=== PATIENT | female | born 1965 | race Caucasian/White ===

== ENCOUNTER 2020-05-05 16:36 | Emergency (ER) | payer OTHER ==
[~2020-05-05] VITALS: Ht 162.6 cm; Wt 133.0 kg
--- NOTE | 2020-05-05 17:05 | PHYS DOC ---
General Adult EDM: Chief Complaint: WRIST PAIN HPI: HPI: Patient is a 54-year-old male coming in for left hand and forearm pain. Patient states she slipped getting out of tablet prior self-limited back pain. Went to her primary care today who sent her here for x-rays, they are x-ray tech out 16 today. States she is tingling in all of her fingers but sensation is intact. Complaining of pain along the entire forearm and second and third metacarpals. Patient is right-handed. Otherwise been well. Took 1 Percocet 10 about 5 hours prior to arrival Review of Systems: Review of Systems: All other systems within normal limits except for as noted in the HPI Current Medications: Current Meds: Current Medications Medications (Trade) Dose Ordered Sig/Carina Start Time Stop Time Status Last Admin Dose Admin Morphine Sulfate (Morphine Ir) 15 mg 1X STAT 05/05/20 16:55 05/05/20 16:56 UNV Physical Exam: PE: Constitutional: Well developed, well nourished, no acute distress, non-toxic appearance. [] HENT: Normocephalic, atraumatic, bilateral external ears normal, nose normal. [] Eyes: PERRLA, conjunctiva normal, no discharge. [] Neck: No rigidity, supple, no stridor. [] Cardiovascular: Regular rate and rhythm, brisk cap refill [] Lungs & Thorax: Non labored symmetric respirations, no tachypnea or respiratory distress [] Abdomen: Soft, nondistended. Skin: Warm, dry, no erythema, no rash. [] Back: Unremarkable Extremities: No deformities, range of motion grossly intact, no lower extremity edema. Left forearm tenderness and swelling over distal forearm, no deformities. Left hand: Edema over dorsum at second and third metatarsals. Range of motion intact for AIN, PIN, radial, ulnar, median nerves. Positive snuffbox tenderness [] Neurologic: Alert and oriented X 3, no focal deficits noted. [] Psychologic: Affect normal, judgement normal, mood normal. [] EKG: EKG: [] Radiology/Procedures: Radiology/Procedures: EXAM: Left forearm, 2 views; left hand, 3 views. HISTORY: Fall. COMPARISON: None. FINDINGS: 2 views of the left forearm and 3 views of left hand are obtained. There is no fracture, dislocation or subluxation. There is no convincing elbow effusion. IMPRESSION: No acute osseous finding. [] Heart Score: Risk Factors: Risk Factors: DM, Current or recent (<one month) smoker, HTN, HLP, family history of CAD, obesity. Risk Scores: Score 0 - 3: 2.5% MACE over next 6 weeks - Discharge Home Score 4 - 6: 20.3% MACE over next 6 weeks - Admit for Clinical Observation Score 7 - 10: 72.7% MACE over next 6 weeks - Early Invasive Strategies Course & Med Decision Making: Course & Med Decision Making Pertinent Labs and Imaging studies reviewed. (See chart for details) [] Dragon Disclaimer: Dragon Disclaimer: This electronic medical record was generated, in whole or in part, using a voice recognition dictation system. Departure Departure: Impression: Primary Impression: Fall Additional Impression: Left wrist sprain Disposition: 01 DC HOME SELF CARE/HOMELESS Condition: STABLE Referrals: TRISTEN WALLER (PCP) Patient Instructions: RICE - Routine Care for Injuries Additional Instructions: Follow-up with primary care in 7 to 10 days for reevaluation of scaphoid tender ness Scripts Morphine Sulfate (MORPHINE SULFATE) 15 Mg Tablet 1 TAB PO PRN Q8HRS PRN for SEVERE PAIN, #8 TAB Be careful as this medication may make you sleepy or drowsy. Do not drive or operate heavy machinery on this medication. Be sure to ask the pharmacist about other side effects that can exist such as constipation. Prov: WALKER PEREZ MD 05/05/20 WALKER PEREZ MD May 05, 2020 17:05
--- NOTE | 2020-05-05 17:14 | RAD ---
EXAM: Left forearm, 2 views; left hand, 3 views. HISTORY: Fall. COMPARISON: None. FINDINGS: 2 views of the left forearm and 3 views of left hand are obtained. There is no fracture, di slocation or subluxation. There is no convincing elbow effusion. IMPRESSION: No acute osseous finding. Electronically signed by: Lidia Musa MD (05/05/2020 5:11 PM) [id number]
[2020-05-05] MEDS ORDERED: MORPHINE IR 15 MG TABLET PO STA (17:20)
[2020-05-05] MEDS ORDERED: MORP15TA PO (17:24)
[2020-05-05 17:26] VITALS: BP 129/60
== END 2020-05-05 18:10 | disposition home or self-care (01) ==
LOC: ER 16:36
DX: S63.502A Unspecified sprain of left wrist, initial encounter (principal); W07.XXXA Fall from chair, initial encounter; Y93.89 Activity, other specified; Y92.89 Other specified places as the place of occurrence of the external cause; Y99.8 Other external cause status
CPT/HCPCS: 29125; 73090; 73130; 99284

== ENCOUNTER → 2020-10-05 | Outpatient (CLI) | payer OTHER ==
[~2020-10-05] MED LIST: MORP15TA PO
--- NOTE | 2020-10-05 11:13 | RAD ---
Examination: Left Lower Extremity Venous Doppler Ultrasound History: Left calf pain Comparison: None Procedure: Carlisle scale, color flow 2D and spectal waveform analysis images are obtained with and witho ut compression in the area of the common femoral vein, superficial femoral vein - femoral vein juncti on, main femoral vein (superficial femoral vein) and popliteal vein. Veins of the proximal calf are a lso imaged. Findings: There is normal duplex flow, color flow and compressibility of all visualized vein segments. No evide nce of deep venous thrombus is present. Impression: No evidence of DVT in the left lower extremity venous system. Electronically signed by: Ashish Allen MD (10/05/2020 11:11 AM) [id number]
== END ==
LOC: US 10:42
PROVIDERS: ATTEND Family Medicine
DX: M79.662 Pain in left lower leg (principal); Z98.890 Other specified postprocedural states
CPT/HCPCS: 93971

== ENCOUNTER 2021-02-08 22:51 | Emergency (ER) | payer OTHER, MEDICAID ==
[~2021-02-08] VITALS: Ht 162.6 cm; Wt 133.0 kg
[2021-02-08 22:58] VITALS: BP 146/91
[2021-02-08] MEDS ORDERED: AZIT250T6 PO (23:08)
--- NOTE | 2021-02-08 23:08 | PHYS DOC ---
Past History Past Medical History: Other Additional Past Medical Histor: degenerative disc disease Past Surgical History: Other Additional Past Surgical Histo: lap band Alcohol Use: None General Adult EDM: Chief Complaint: COUGH HPI: HPI: Patient is a [age] year old [sex] who presents with [] Review of Systems: Review of Systems: Constitutional: Denies fever or chills Eyes: Denies redness or eye pain HENT: Denies nasal congestion or sore throat Respiratory: Denies cough or shortness of breath Cardiovascular: Denies chest pain or palpitations GI: Denies abdominal pain, nausea, or vomiting : Denies dysuria or hematuria Musculoskeletal: Denies back pain or joint pain Integument: Denies rash or skin lesions Neurologic: Denies headache, focal weakness or sensory changes Complete systems were reviewed and found to be within normal limits, except as documented in this note. Allergies: Allergies: Allergies Coded Allergies Type Severity Reaction Last Updated Verified No Known Drug Allergies 05/05/20 No Physical Exam: PE: Constitutional: Well developed, well nourished, no acute distress, non-toxic appearance HENT: Normocephalic, atraumatic Eyes: PERRL, EOMI, conjunctiva normal, no discharge Neck: Normal range of motion, no tenderness, supple Lungs & Thorax: No respiratory distress, equal chest rise and fall Abdomen: Soft, no tenderness Skin: Warm, dry, no erythema, no rash Back: No tenderness, no CVA tenderness Extremities: No tenderness, ROM intact, no edema Neurologic: Alert and oriented X 3, normal motor function, normal sensory function, no focal deficits noted Psychologic: Affect normal, judgment normal EKG: EKG: [] Radiology/Procedures: Radiology/Procedures: [] Heart Score: C/O Chest Pain: N/A Course & Med Decision Making: Course & Med Decision Making Pertinent Labs and Imaging studies reviewed. (See chart for details) Patient stable for discharge with outpatient follow-up with PCP. Discussed findings and plan with patient, who acknowledges understanding and agreement. COVID-19 CRITERIA: The patient was evaluated during the global COVID-19 pandemic, and that diagnosis was suspected/considered upon their initial presentation. Their evaluation, treatment and testing was consistent with current guidelines for patients who present with complaints or symptoms that may be related to COVID-19. Judy Disclaimer: Judy Disclaimer: This electronic medical record was generated, in whole or in part, using a voice recognition dictation system. Departure Departure: Impression: Primary Impression: Viral syndrome Additional Impression: Suspected COVID-19 virus infection Disposition: 01 HOME / SELF CARE / HOMELESS Condition: STABLE Referrals: TRISTEN WALLER (PCP) Patient Instructions: Fever, Adult, [id number], Viral Syndrome Additional Instructions: Hold antibiotics for 48 hours. If symptoms worsen or for fever > 100.3 F after 48 hours then start antibiotics as prescribed. You have been tested for or diagnosed with COVID-19. It is an infection caused by a new type of coronavirus. COVID-19 will cause cold-like or mild flu symptoms in most. It can cause more severe symptoms like problems breathing in some. There is no treatment for COVID-19. The body will clear the infection over time. Self-care will help to ease discomfort. Steps to Take: Self-Care Rest as needed. Healthy habits may help you feel better. Steps include: Choose healthy foods including fruits and vegetables. Drink water throughout the day. Get plenty of sleep each night. If you smoke, try to quit. It may ease breathing. Avoid alcohol. Keep Others Healthy The virus can spread to others. Droplets are released every time you sneeze or cough. The droplets can get into the mouth, nose, or eyes of people near you and lead to infection. To lower the chances of spreading COVID-19 to others: Stay at home until your doctor has said it is safe to leave. If you tested positive this will mean staying isolated until both of the following are true: At least 7 days have passed since the start of illness. You are free of fever for at least 72 hours without the use of medicine. During this time: - Avoid public areas, events, or transportation. Do not return to work or school until your doctor has said it is safe to do so. - Call ahead if you need to go to a medical center. Let them know you may have COVID-19. It will help them guide you where to go. They may also ask you to wear a facemask when you come to the office. - If you call for emergency medical services, let them know you may have COVID- 19. While at home: - Try to avoid close contact with others. Stay about 6 feet away. - If possible, spend most of your time in a separate room from others. - Use a face mask if you will be in close contact with others such as sharing a room or vehicle. - Have someone wipe down common surfaces in the home. Use household drill rig operator helper every day on areas like doorknobs, counters, or sinks. - Cough or sneeze into a tissue. Throw the tissue away right after use. If a tissue is not available, cough or sneeze into your elbow. - Wash your hands often. Wash them after sneezing or coughing. Use soap and water and wash for at least 20 seconds. Alcohol based hand fur dry cleaner hand can be used if soap and water is not available. - Do not prepare food for others. Avoid sharing personal items like forks, spoons, or toothbrushes. - Avoid close contact with pets while you are sick. There is no evidence of the virus passing to pets. This is a safety step until more is known about this virus. Isolation can be frustrating. Social interaction can help. Keep in touch with friends and family through phone and tech options. You can still interact with others in your home, just keep a safe distance of about 6 feet. Follow-up: Your doctors office will check in with you to see if there are any changes in your health. You may be asked to keep track of symptoms to share with them. They will also let you know when you are clear to be in public again. Problems to Look Out For: Contact your doctor if your recovery is not going as you expect. Get emergency care if you have problems such as: - Trouble breathing - Nonstop chest pain or pressure - Changes in awareness, confusion, or problems waking - Lips or face have bluish color - Worsening of symptoms If you think you have an emergency, call for emergency medical services right away. As taken from [facility] Scripts Azithromycin (AZITHROMYCIN TABLET) 250 Mg Tablet 1 PKG PO UD for bronchitis, #6 TAB Take 2 tablets today and then one tablet every day thereafter for the next 4 days Prov: LEE KUMAR DO 02/08/21 LEE KUMAR DO Feb 08, 2021 23:08
[2021-02-08] MEDS ORDERED: ACETAMINOPHEN 500 MG TABLET PO ONE (23:30)
[2021-02-08] MEDS ORDERED: DEXAMETHASONE 4 MG TABLET PO ONE (23:30)
--- NOTE | 2021-02-08 23:44 | RAD ---
XR CHEST 1V History: Fever, cough, possible Covid Comparison: None. Technique: Portable AP radiograph of the chest. Findings: The lungs are adequately inflated. No focal airspace opacity, pleural effusion or pneumothorax. The c ardiomediastinal silhouette and pulmonary vasculature are within normal limits. A 1.1 cm calcified de nsity projects over the right scapula, possible osteochondral body from the shoulder. Degenerative ch anges of the acromioclavicular joints. Soft tissues are unremarkable. Impression: 1. No acute cardiopulmonary process. Electronically signed by: Scar Pickett MD (02/08/2021 11:41 PM) [facility]
== END 2021-02-08 23:25 | disposition home or self-care (01) ==
LOC: ER 22:51
DX: U07.1 COVID-19 (principal); B34.9 Viral infection, unspecified
CPT/HCPCS: 71045; 99284; C9803; J8540; U0003

== ENCOUNTER 2021-05-02 15:38 | Emergency (ER) | payer OTHER, MEDICAID ==
[~2021-05-02] VITALS: Ht 162.6 cm; Wt 133.0 kg
[~2021-05-02 15:38] MED LIST changes: +AZIT250T6 PO; +MORP-62 PO; -MORP15TA PO
[2021-05-02 16:07] VITALS: BP 146/91
[2021-05-02] MEDS ORDERED: IOHEXOL 300 MG/ML 75 ML VIAL. IV ONE (16:30)
[2021-05-02] MEDS ORDERED: LIDO:MAALOX 1:1 20 ML SINGLE DOSE. PO ONE (16:30)
[2021-05-02] MEDS ORDERED: IV NORMAL SALINE 1,000ML 1,000 ML IV ONE (16:30)
--- NOTE | 2021-05-02 16:31 | PHYS DOC ---
Past History Past Medical History: Anxiety, Asthma, Other Additional Past Medical Histor: degenerative disc disease, incontinence (MARIO LAZCANO APRN) Past Surgical History: Gastric Bypass, Other Additional Past Surgical Histo: lap band, bladder surgery (MARIO LAZCANO APRN) Smoking: Quit Greater Than 1 Year Alcohol Use: None Drug Use: None (MARIO LAZCANO APRN) General Adult EDM: Chief Complaint: SORE THROAT HPI: HPI: Patient is a 55-year-old female who presents to the emergency department today for acid reflux, sore throat and throat spasms. Patient reports that she had a gastric bypass surgery in August. She reports that she had the symptoms on April 22 and took an omeprazole and it resolved but she states she took an om eprazole today and it did not help her symptoms. Patient reports a hoarse voice, nasal drainage and a productive cough.She reports that burning sensation is located in at the base of her throat and into her throat. She denies any chest pain. Patient reports that she is not actually having any reflux produced. She states that she had a negative Covid test a couple of days ago. She denies any abdominal pain, nausea, vomiting, hematemesis, diarrhea, shortness of breath. (MARIO LAZCANO APRN) Review of Systems: Review of Systems: HENT: See HPI Respiratory: See HPI Cardiovascular: See HPI GI: See HPI (MARIO LAZCANO APRN) Allergies: Allergies: Allergies Coded Allergies Type Severity Reaction Last Updated Verified Penicillins Allergy Unknown 02/08/21 Yes bupropion Allergy Unknown 02/08/21 Yes buspirone Allergy Unknown 02/08/21 Yes erythromycin base Allergy Unknown 02/08/21 Yes meperidine Allergy Unknown 02/08/21 Yes morphine Allergy Unknown 02/08/21 Yes paroxetine Allergy Unknown 02/08/21 Yes promethazine Allergy Unknown 02/08/21 Yes (MARIO LAZCANO APRN) Physical Exam: PE: Constitutional: Well developed, well nourished, no acute distress, non-toxic appearance. [] HENT: Normocephalic, atraumatic, bilateral external ears normal, oropharynx moist, no oral exudates, nose normal. [] Eyes: PERRLA, EOMI, conjunctiva normal, no discharge. [] Neck: Normal range of motion, no tenderness, supple, no stridor. [] Cardiovascular:Heart rate regular rhythm, no murmur [] Lungs & Thorax: Bilateral breath sounds clear to auscultation [] Abdomen: Bowel sounds normal, soft, no tenderness, no masses, no pulsatile masses. [] Skin: Warm, dry, no erythema, no rash. [] Back: No tenderness, no CVA tenderness. [] Extremities: No tenderness, no cyanosis, no clubbing, ROM intact, no edema. [] Neurologic: Alert and oriented X 3, normal motor function, normal sensory function, no focal deficits noted. [] Psychologic: Affect normal, judgement normal, mood normal. [] (MARIO LAZCANO APRN) Current Patient Data: Labs: Laboratory Tests Test 05/02/21 16:34 05/02/21 17:00 05/02/21 17:15 Group A Streptococcus Rapid Negative White Blood Count 8.1 x10^3/uL Red Blood Count 4.18 x10^6/uL Hemoglobin 13.3 g/dL Hematocrit 40.6 % Mean Corpuscular Volume 97 fL Mean Corpuscular Hemoglobin 32 pg Mean Corpuscular Hemoglobin Concent 33 g/dL Red Cell Distribution Width 13.3 % Platelet Count 251 x10^3/uL Neutrophils (%) (Auto) 67 % Lymphocytes (%) (Auto) 23 % Monocytes (%) (Auto) 8 % Eosinophils (%) (Auto) 1 % Basophils (%) (Auto) 0 % Neutrophils # (Auto) 5.5 x10^3uL Lymphocytes # (Auto) 1.9 x10^3/uL Monocytes # (Auto) 0.7 x10^3/uL Eosinophils # (Auto) 0.1 x10^3/uL Basophils # (Auto) 0.0 x10^3/uL Sodium Level 139 mmol/L Potassium Level 4.0 mmol/L Chloride Level 105 mmol/L Carbon Dioxide Level 27 mmol/L Anion Gap 7 Blood Urea Nitrogen 6 mg/dL Creatinine 0.6 mg/dL Estimated GFR (Cockcroft-Gault) 103.0 BUN/Creatinine Ratio 10 Glucose Level 81 mg/dL Calcium Level 8.4 mg/dL Total Bilirubin 0.4 mg/dL Aspartate Amino Transf (AST/SGOT) 22 U/L Alanine Aminotransferase (ALT/SGPT) 31 U/L Alkaline Phosphatase 117 U/L Troponin I High Sensitivity 5 ng/L Total Protein 6.3 g/dL Albumin 3.5 g/dL Albumin/Globulin Ratio 1.3 Influenza Type A (Rapid) Negative Influenza Type B (Rapid) Negative SARS-CoV-2 Antigen (Rapid) Negative Current Medications Medications (Trade) Dose Ordered Sig/Carina Route PRN Reason Start Time Stop Time Status Last Admin Dose Admin Sodium Chloride 1,000 ml @ 1,000 mls/hr 1X ONCE IV 05/02/21 16:30 05/02/21 17:29 DC 05/02/21 16:30 Multi-Ingredient Mouthwash/Gargle (Gi Cocktail) 20 ml 1X ONCE PO 05/02/21 16:30 05/02/21 16:31 DC 05/02/21 16:30 Iohexol (Omnipaque 300 Mg/ml) 75 ml 1X ONCE IV 05/02/21 16:30 05/02/21 16:31 DC 05/02/21 17:59 Info (Do NOT chart on this entry -- for MONITORING) 1 each PRN DAILY PRN MC SEE COMMENTS 05/02/21 16:45 05/04/21 16:44 Lorazepam (Ativan Inj) 1 mg 1X ONCE IVP 05/02/21 17:30 05/02/21 17:42 DC 05/02/21 17:30 Lorazepam (Ativan Inj) 1 mg 1X ONCE IVP 05/02/21 18:15 05/02/21 18:16 DC 05/02/21 18:07 Famotidine (Pepcid Vial) 20 mg 1X ONCE IVP 05/02/21 19:45 05/02/21 19:35 DC Famotidine (Pepcid) 20 mg 1X ONCE PO 05/02/21 19:45 05/02/21 19:46 UNV Vital Signs: Vital Signs Date Time Temp Pulse Resp B/P (MAP) Pulse Ox O2 Delivery O2 Flow Rate FiO2 05/02/21 16:07 99.3 88 18 146/91 (109) 98 (MARIO LAZCANO APRN) EKG: EKG: EKG performed by ER staff at 1644 shows sinus rhythm with a rate of 76, QTc of 420, no STEMI read by Dr. Lopes at 1649. [] (MARIO LAZCANO APRN) Radiology/Procedures: Radiology/Procedures: []PROCEDURE: CT NECK CHEST ABD PELVIS W/ CT NECK CHEST ABD PELVIS W CON History: Reflux, history of gastric bypass, esophageal ulcer. Comparison: None. Technique: CT of the neck, chest, abdomen, and pelvis with intravenous contrast. Findings: There is a enlarged heterogeneous multinodular thyroid with substernal exte nsion. The bilateral parotid and submandibular glands are unremarkable. No enlarged cervical adenopathy. The vascular structures are patent. There are calcifications of bilateral carotid bulbs. The mastoid air cells and visualized paranasal sinuses are clear. No aerodigestive tract mucosal lesion identified. No abscess. Mild degenerative changes in the cervical spine. The aorta and pulmonary arteries are normal in caliber. Thickening of the distal thoracic esophagus with small to moderate sliding hiatal hernia. Heart size is normal. Mild coronary artery calcification. No pericardial effusion. The airways are clear. There is no airspace consolidation. No pleural effusion or pneumothorax. Degenerative changes of the right shoulder with calcified osteochondral body in the anterior axillary pouch measuring 9 mm diameter. No acute osseous abnormality. The liver is unremarkable. Status post cholecystectomy. Mild fatty atrophy of the pancreas. The spleen, adrenal glands and kidneys are unremarkable. The bladder is well distended. There is obscured by left hip arthroplasty. No focal lesion is identified. Unremarkable visualized portions of the uterus and adnexa. Postsurgical changes from gastric bypass with small sliding hernia as above. The excluded stomach is nondistended. The antecolic alimentary limb is nondistended. There is no evidence of small bowel obstruction. Patent anterior left midabdomen jejunojejunostomy. Normal appendix. Mild colonic stool burden. No colonic wall thickening or pericolonic inflammatory changes. No free air or free fluid. No adenopathy. Degenerative changes the lower lumbar spine. Left total hip arthroplasty. No acute osseous abnormalities. Impression: 1. Postsurgical changes from gastric bypass with small sliding hiatal hernia and thickening of the distal esophagus. Correlate for esophagitis. 2. Heterogeneous enlarged multinodular thyroid. Recommend thyroid ultrasound for further evaluation. ------ Exposure: One or more of the following individualized dose reduction techniques were utilized for this examination: 1. Automated exposure control 2. Adjustment of the mA and/or kV according to patient size 3. Use of iterative reconstruction technique. Electronically signed by: Scar Palmer MD (05/02/2021 7:07 PM) [facility] DICTATED AND SIGNED BY: SCAR PALMER MD DATE: 05/02/21 2502 CC: EMERGENCY,DEPARTMENT; MARIO LAZCANO APRN; TRISTEN WALLER ~MTH0 0 (MARIO LAZCANO APRN) Heart Score: C/O Chest Pain: No Risk Factors: Risk Factors: DM, Current or recent (<one month) smoker, HTN, HLP, family his tory of CAD, obesity. Risk Scores: Score 0 - 3: 2.5% MACE over next 6 weeks - Discharge Home Score 4 - 6: 20.3% MACE over next 6 weeks - Admit for Clinical Observation Score 7 - 10: 72.7% MACE over next 6 weeks - Early Invasive Strategies (MARIO LAZCANO APRN) Course & Med Decision Making: Course & Med Decision Making Pertinent Labs and Imaging studies reviewed. (See chart for details) [] Patient presents to the emergency department for reflux symptoms, throat spasms, sore throat. Patient had a gastric bypass in August. She reports he has had these symptoms previously in April but took omeprazole and her symptoms resolved with as not helping her symptoms today. Patient is also reporting nasal drainage and a productive cough, therefore she will be tested for influenza, strep throat and COVID-19. Patient will also have blood work and CT imaging of her abdomen and pelvis performed to rule out any abnormality with her gastric bypass surgery as she did contact her surgeon who performed the gastric bypass and they told her to go to the emergency department to make sure there was nothing wrong with the bypass surgery. Patient also reports she has a history of esophageal ulcers. Patient denies any emesis. Blood work was unremarkable. Patient had negative influenza, COVID and strep testing. CT performed of patient's neck and abdomen and pelvis which showed thickening of her esophagus consistent with esophagitis and a small hiatal hernia but no other acute findings. Patient reports that she takes 40 mg of omeprazole but has ran out. Patient will have her omeprazole refilled and she is to follow-up with her GI doctor. Patient reports complete relief of her symptoms following GI cocktail. Patient's vital signs are stable she is in no acute distress. She is tolerating oral intake. I discussed with patient all findings and diagnostic testing as well as the need to follow-up with PCP for further evaluation and treatment or return to the ER if any new or worsening symptoms. Strict return precautions were also discussed at length. Patient voiced understanding and a greement with the plan. Patient is hemodynamically stable at the time of disposition. (MARIO LAZCANO APRN) Dragon Disclaimer: Dragon Disclaimer: This electronic medical record was generated, in whole or in part, using a voice recognition dictation system. (MARIO LAZCANO APRN) Departure Departure: Impression: Primary Impression: Esophagitis Additional Impression: GERD (gastroesophageal reflux disease) Qualified Codes: K21.00 - Gastro-esophageal reflux disease with esophagitis, without bleeding Disposition: HOME / SELF CARE / HOMELESS Condition: GOOD Referrals: TRISTEN WALLER (PCP) Patient Instructions: Diet for Gastroesophageal Reflux Disease, Adult, Esophagitis Additional Instructions: You were seen in the emergency department for reflux. Your blood work was unremarkable. Your strep, influenza and Covid test was negative. Your CT scan of your neck and abdomen and pelvis showed a hiatal hernia and esophagitis which is inflammation of your esophagus likely due to your GERD. You are being discharged home with and a prescription for omeprazole, please take this as directed. Please avoid any foods that may exacerbate your GERD, see handout. Follow-up with your GI doctor tomorrow regarding your ER visit. Return to the emergency department if you develop intractable nausea or vomiting, chest pain, shortness of breath, high fevers refractory to treatment, inability to tolerate oral intake, abdominal pain, blood in your stools or vomit. Scripts Omeprazole (OMEPRAZOLE) 40 Mg Capsule.dr 1 CAP PO DAILY for gerd for 30 Days, #30 CAP 0 Refills Prov: MARIO LAZCANO APRN 05/02/21 Attending Signature Attending Signature I have participated in the care of this patient and I have reviewed and agree with all pertinent clinical information above including history, exam, and recommendations. (GARETH PEARCE MD) Dragon Disclaimer This chart was dictated in whole or in part using Voice Recognition software in a busy, high-work load, and often noisy Emergency Department environment. It may contain unintended and wholly unrecognized errors or omissions. (GARETH PEARCE MD) MARIO LAZCANO APRN May 02, 2021 16:31 GARETH PEARCE MD May 03, 2021 20:04
[2021-05-02] MEDS ORDERED: CONTRAST GIVEN. MC PRN (16:45)
[2021-05-02 17:40] LABS: BASO % 0 % (0-3); EOS # 0.1 x10^3/uL (0.0-0.7); EOS % 1 % (0-3); HEMATOCRIT 40.6 % (36.0-47.0); HEMOGLOBIN 13.3 g/dL (12.0-15.5); LYMPH # 1.9 x10^3/uL (1.0-4.8); LYMPH % 23 % (24-48); MEAN CORPUSCULAR HEMOGLOBIN 32 pg (25-35); MEAN CORPUSCULAR HGB CONC 33 g/dL (31-37); MEAN CORPUSCULAR VOLUME 97 fL (79-100); MONO # 0.7 x10^3/uL (0.0-1.1); MONO % 8 % (0-9); NEUT # 5.5 x10^3uL (1.8-7.7); NEUT % 67 % (31-73); PLATELET COUNT 251 x10^3/uL (140-400); RED BLOOD COUNT 4.18 x10^6/uL (3.50-5.40); RED CELL DISTRIBUTION WIDTH 13.3 % (11.5-14.5); WHITE BLOOD COUNT 8.1 x10^3/uL (4.0-11.0)
[2021-05-02 17:49] LABS: CALCIUM 8.4 mg/dL (8.5-10.1); CREATININE 0.6 mg/dL (0.6-1.0)
[2021-05-02 17:56] LABS: ALBUMIN 3.5 g/dL (3.4-5.0); ALBUMIN/GLOBULIN RATIO 1.3 (1.0-1.7); TOTAL BILIRUBIN 0.4 mg/dL (0.2-1.0); TOTAL PROTEIN 6.3 g/dL (6.4-8.2)
[2021-05-02 17:56] LABS: INFLUENZA A PATIENT NEGATIVE (NEGATIVE); INFLUENZA B PATIENT NEGATIVE (NEGATIVE)
--- NOTE | 2021-05-02 19:10 | RAD ---
CT NECK CHEST ABD PELVIS W CON History: Reflux, history of gastric bypass, esophageal ulcer. Comparison: None. Technique: CT of the neck, chest, abdomen, and pelvis with intravenous contrast. Findings: There is a enlarged heterogeneous multinodular thyroid with substernal extension. The bilateral parot id and submandibular glands are unremarkable. No enlarged cervical adenopathy. The vascular structure s are patent. There are calcifications of bilateral carotid bulbs. The mastoid air cells and visualiz ed paranasal sinuses are clear. No aerodigestive tract mucosal lesion identified. No abscess. Mild de generative changes in the cervical spine. The aorta and pulmonary arteries are normal in caliber. Thickening of the distal thoracic esophagus w ith small to moderate sliding hiatal hernia. Heart size is normal. Mild coronary artery calcification . No pericardial effusion. The airways are clear. There is no airspace consolidation. No pleural effusion or pneumothorax. Degen erative changes of the right shoulder with calcified osteochondral body in the anterior axillary pouc h measuring 9 mm diameter. No acute osseous abnormality. The liver is unremarkable. Status post cholecystectomy. Mild fatty atrophy of the pancreas. The splee n, adrenal glands and kidneys are unremarkable. The bladder is well distended. There is obscured by l eft hip arthroplasty. No focal lesion is identified. Unremarkable visualized portions of the uterus a nd adnexa. Postsurgical changes from gastric bypass with small sliding hernia as above. The excluded stomach is nondistended. The antecolic alimentary limb is nondistended. There is no evidence of small bowel obst ruction. Patent anterior left midabdomen jejunojejunostomy. Normal appendix. Mild colonic stool burde n. No colonic wall thickening or pericolonic inflammatory changes. No free air or free fluid. No ca opathy. Degenerative changes the lower lumbar spine. Left total hip arthroplasty. No acute osseous ab normalities. Impression: 1. Postsurgical changes from gastric bypass with small sliding hiatal hernia and thickening of the d istal esophagus. Correlate for esophagitis. 2. Heterogeneous enlarged multinodular thyroid. Recommend thyroid ultrasound for further evaluation. ------ Exposure: One or more of the following individualized dose reduction techniques were utilized for thi s examination: 1. Automated exposure control 2. Adjustment of the mA and/or kV according to patient size 3. Use of iterative reconstruction technique. Electronically signed by: Scar Pickett MD (05/02/2021 7:07 PM) [facility]
[2021-05-02] MEDS ORDERED: FAMOTIDINE 20 MG/2 ML VIAL IVP ONE (19:45)
[2021-05-02] MEDS ORDERED: FAMOTIDINE 20 MG TABLET PO ONE (19:45)
--- NOTE | 2021-05-02 19:47 | EKG ---
[address] [address] Test Date: 2021-05-02 Test Time: 16:44:53 Pat Name: KOKI MAXWELL Department: Room: Gender: F Supervisor Coffee: RIGOBERTO : 1965 Requested By: MARIO LAZCANO Order Number: [id number] Reading MD: Felton Parisi Measurements Intervals [place] Rate: 76 P: 41 MI: 172 QRS: -21 QRSD: 88 T: 23 QT: 374 QTc: 420 Interpretive Statements SINUS RHYTHM LEFTWARD AXIS Electronically Signed On 05-03-2021 19:28:04 [employer] MANAGER by Felton Parisi
[2021-05-02] MEDS ORDERED: OMEP40CA7 PO (19:49)
== END 2021-05-02 20:00 | disposition home or self-care (01) ==
LOC: ER 15:38
DX: K21.00 Gastro-esophageal reflux disease with esophagitis, without bleeding (principal); F41.9 Anxiety disorder, unspecified; J45.909 Unspecified asthma, uncomplicated; Z20.822 Contact with and (suspected) exposure to COVID-19; Z87.891 Personal history of nicotine dependence; Z98.84 Bariatric surgery status; Z88.0 Allergy status to penicillin; Z88.5 Allergy status to narcotic agent; Z88.1 Allergy status to other antibiotic agents; Z88.8 Allergy status to other drugs, medicaments and biological substances
CPT/HCPCS: 36415; 70491; 71260; 74177; 80053; 84484; 85025; 87070; 87428; 87880; 93005; 96361; 96374; 96376; 99285; J2060; J7030; Q9967

== ENCOUNTER → 2021-05-24 | Outpatient (CLI) | payer OTHER, MEDICAID ==
[2021-05-02 16:07] VITALS: BP 146/91
[~2021-05-24] MED LIST changes: +OMEP40CA7 PO
--- NOTE | 2021-05-24 16:14 | RAD ---
EXAM: ULTRASOUND SOFT TISSUE NECK CLINICAL HISTORY: Reason: MULTIPLE THYROID NODULES /, abnormal CTA. COMPARISON: CT neck with contrast 05/02/2021. TECHNIQUE: Ultrasound examination of the thyroid gland was performed FINDINGS: Sonographic evaluation of the thyroid gland was performed and evaluated using ACR TI-RADS criteria. There is thyromegaly. The thyroid gland is heterogeneous. The isthmus measures 1.2 cm AP. The right thyroid lobe measures 6.5 x 3.6 x 3.1 cm. The left thyroid lobe measures 7.7 x 3.1 x 3.4 cm. Largely replacing the inferior right thyroid lobe there is a TR3 nodule with maximum dimension of 3.1 cm. J replacing the inferior left thyroid lobe there is a TR3 nodule with maximum dimension of 3.8 cm. IMPRESSION: 1. Multinodular, heterogeneous, enlarged thyroid. 2. There are dominant right and left thyroid nodules that meet size criteria for consideration of FN A. ACR TI-RADS risk category: TR3. Electronically signed by: Jason Jimenez MD (05/24/2021 4:11 PM) [id number]
== END ==
LOC: US 13:53
PROVIDERS: ATTEND Family Medicine
DX: E04.2 Nontoxic multinodular goiter (principal)
CPT/HCPCS: 76536

== ENCOUNTER → 2021-05-25 | Outpatient (CLI) | payer OTHER, MEDICAID ==
[2021-05-02 16:07] VITALS: BP 146/91
--- NOTE | 2021-05-30 10:38 | RAD ---
PROCEDURE: MG 2D BILAT SCREENING HISTORY: The patient is 55 years old and is seen for Reason: SCREENING / Spl. Instructions: / Histor y: . COMPARISON: August 19, 2019 and July 10, 2017 TECHNIQUE: CC and MLO views of both breasts were obtained. Images were processed by the [employer] computer-aided detection system. DENSITY: There are scattered fibroglandular densities. FINDINGS: No developing mass, suspicious calcifications or architectural distortion. Bilateral bio psy markers noted. Well-circumscribed right posterior breast mass, unchanged compared to prior. IMPRESSION: Benign findings. No evidence of malignancy. Recommend annual screening mammograms per [employer] [employer] guidelines. She will be due in one year. BI-RADS category 2 Benign Patient entered into a reminder system for annual screening mammogram. Electronically signed by: Arik Naranjo DO (05/30/2021 10:35 AM) [id number]
== END ==
LOC: MAMMO 15:21
PROVIDERS: ATTEND Family Medicine
DX: Z12.31 Encounter for screening mammogram for malignant neoplasm of breast (principal)
CPT/HCPCS: 77067

== ENCOUNTER 2021-06-23 16:55 | Emergency (ER) | payer OTHER, MEDICAID ==
[~2021-06-23] VITALS: Ht 162.6 cm; Wt 115.0 kg
[2021-06-23] MEDS ORDERED: ONDANSETRON PF 4 MG/2 ML VIAL. IVP ONE (18:15)
[2021-06-23] MEDS ORDERED: diphenhydrAMINE 50 MG/ML VIAL IVP ONE (18:15)
[2021-06-23] MEDS ORDERED: KETOROLAC 15 MG/ML VIAL. IVP ONE (18:15)
--- NOTE | 2021-06-23 18:26 | PHYS DOC ---
Past History Past Medical History: Anxiety, Asthma, Other Additional Past Medical Histor: degenerative disc disease, incontinence (SHERRIE PALUMBO APRN) Past Surgical History: Gastric Bypass, Other Additional Past Surgical Histo: lap band, bladder surgery (SHERRIE PALUMBO APRN) Smoking: Quit Greater Than 1 Year Alcohol Use: None Drug Use: None (SHERRIE PALUMBO APRN) General Adult EDM: Chief Complaint: MULTIPLE COMPLAINTS HPI: HPI: Patient is a 55-year-old female who presents with chest pain that radiates up to her jaw and burning epigastric pain. Patient states the pain started at 330 today. Patient is also reporting a headache. Denies shortness of breath, nausea/vomiting. Denies take anything at home for pain. History of anxiety, asthma. (SHERRIE PALUMBO APRN) Review of Systems: Review of Systems: ROS At least 10 ROS systems have been reviewed and are negative except as documented in the HPI. General: Negative except as outlined in HPI above. Skin: Negative except as outlined in HPI above. HEENT: Negative except as outlined in HPI above. Neck: Negative except as outlined in HPI above. Respiratory: Negative except as outlined in HPI above.. Cardiovascular: Negative except as outlined in HPI above. Abdomen: Negative except as outlined in HPI above. : Negative except as outlined in HPI above. Back/MSK: Negative except as outlined in HPI above. Neuro: Negative except as outlined in HPI above. Psych: Negative except as outlined in HPI above. (SHERRIE PALUMBO APRN) Allergies: Allergies: Allergies Coded Allergies Type Severity Reaction Last Updated Verified Penicillins Allergy Unknown 02/08/21 Yes bupropion Allergy Unknown 02/08/21 Yes buspirone Allergy Unknown 02/08/21 Yes erythromycin base Allergy Unknown 02/08/21 Yes meperidine Allergy Unknown 02/08/21 Yes morphine Allergy Unknown 02/08/21 Yes paroxetine Allergy Unknown 02/08/21 Yes promethazine Allergy Unknown 02/08/21 Yes (SHERRIE PALUMBO RESPIRATORY THERAPY ASSISTANT) Physical Exam: PE: Constitutional: Well developed, well nourished, no acute distress, non-toxic appearance. [] HENT: Normocephalic, atraumatic, bilateral external ears normal, oropharynx moist, no oral exudates, nose normal. [] Eyes: PERRLA, EOMI, conjunctiva normal, no discharge. [] Neck: Normal range of motion, no tenderness, supple, no stridor. [] Cardiovascular:Heart rate regular rhythm, no murmur [] Lungs & Thorax: Bilateral breath sounds clear to auscultation [] Abdomen: Bowel sounds normal, soft, no tenderness, no masses, no pulsatile masses. [] Skin: Warm, dry, no erythema, no rash. [] Back: No tenderness, no CVA tenderness. [] Extremities: No tenderness, no cyanosis, no clubbing, ROM intact, no edema. [] Neurologic: Alert and oriented X 3, normal motor function, normal sensory function, no focal deficits noted. [] Psychologic: Affect normal, judgement normal, mood normal. [] (SHERRIE PALUMBO APRN) Current Patient Data: Vital Signs: Vital Signs Date Time Temp Pulse Resp B/P (MAP) Pulse Ox O2 Delivery O2 Flow Rate FiO2 06/23/21 17:34 98.4 68 20 131/70 (90) 99 Room Air (SHERRIE PALUMBO APRN) EKG: EKG: [] (SHERRIE PALUMBO APRN) Radiology/Procedures: Radiology/Procedures: []Study: XR CHEST 1V Indication: Chest pain. Comparison: 02/08/2021 Findings: The cardiomediastinal silhouette and char are within normal limits. No localized airspace opacity, pleural effusion or pneumothorax. Calcific atherosclerosis at the aortic arch. Unchanged focus of sclerosis projecting beneath the right coracoid process. Impression: No acute radiographic abnormality of the chest. Electronically signed by: CHACHO HENRIQUEZ MD (06/23/2021 7:16 PM) [facility] (SHERRIE PALUMBO APRN) Heart Score: C/O Chest Pain: Yes HEART Score for Chest Pain: HEART Score for Chest Pain Response (Comments) Value History Moderately Suspicious 1 ECG Normal 0 Age >45 - < 65 1 Risk Factors 1 or 2 Risk Factors 1 Total 3 Risk Factors: Risk Factors: DM, Current or recent (<one month) smoker, HTN, HLP, family history of CAD, obesity. Risk Scores: Score 0 - 3: 2.5% MACE over next 6 weeks - Discharge Home Score 4 - 6: 20.3% MACE over next 6 weeks - Admit for Clinical Observation Score 7 - 10: 72.7% MACE over next 6 weeks - Early Invasive Strategies (SHERRIE PALUMBO APRN) Course & Med Decision Making: Course & Med Decision Making Pertinent Labs and Imaging studies reviewed. (See chart for details) [] 55-year-old female presents with chest pain that radiates to her jaw and burning epigastric pain. Work-up in ER consisted of EKG, CBC, CMP, troponin. Patient given Toradol, Reglan, Benadryl. Denies thunderclap. Denies worst headache of her life. Chest x-ray is unremarkable. All labs unremarkable. Heart score of 3. Patient still reporting mild headache and epigastric pain on reassessment. Patient given GI cocktail and p.o. hydrocodone. Discussed all results with patient. Patient's pain is most likely from GERD. Advised patient she needs to follow-up with her PCP for possible further management. Discussed return precautions. Patient appreciative and okay with discharge plan. (SHERRIE PALUMBO APRN) Course & Med Decision Making Did not see or evaluate patient. Did not discuss patient with PROPERTY ADMINISTRATOR. Generally agree with PROPERTY ADMINISTRATOR's work-up and disposition per note (SIDDHARTH SRIVASTAVA MD) Dragon Disclaimer: Dragon Disclaimer: This electronic medical record was generated, in whole or in part, using a voice recognition dictation system. (SHERRIE PALUMBO APRN) Departure Departure: Impression: Primary Impression: GERD (gastroesophageal reflux disease) Qualified Codes: K21.9 - Gastro-esophageal reflux disease without esophagitis Additional Impression: Headache Qualified Codes: R51.9 - Headache, unspecified Disposition: HOME / SELF CARE / HOMELESS Condition: STABLE Referrals: TRISTEN WALLER (PCP) Patient Instructions: Diet for Gastroesophageal Reflux Disease, Adult, [id number] Additional Instructions: You are seen emergency room for epigastric, burning pain along with headache. You were given medication to treat your headache which did improve symptoms. You were also given a GI cocktail. Make sure you are taking Tylenol and ibuprofen at home for discomfort. Return to the emergency room if you have worsening symptoms or concerns such as uncontrollable pain, uncontrolled vomiting, chest pain or shortness of breath. Otherwise please make an appointment with your PCP for follow-up. EMERGENCY DEPARTMENT GENERAL DISCHARGE INSTRUCTIONS Thank you for coming to [facility] (ED) today and trusting us with you care. We trust that you had a positivie experience in our Emergency Department. If you wish to speak to the department management, you may call the director at [phone]. YOUR FOLLOW UP INSTRUCTIONS ARE FOLLOWS: 1. Do you have a private Doctor? If you do not have a private doctor, please ask for a resource list of physicians or clinics that may be able to assist you with follow up care. 2. The Emergency Physician has interpreted your x-rays. The X-Ray specialist will also review them. If there is a change in the findings, you will be notified in 48 hours when at all possible. 3. A lab test or culture has been done, your results will be reviewed and you will be notified if you need a change in treatment. ADDITIONAL INSTRUCTIONS AND INFORMATION: 1. Your care today has been supervised by a physician who is specially trained in emergency care. Many problems require more than one evaluation for a complete diagnosis and treatment. We recommend that you schedule your follow up appointment as recommended to ensure complete treatment of you illness or injury. If you are unable to obtain follow up care and continue to have a problem, or if your condition worsens, we recommend that you return to the ED. 2. We are not able to safely determine your condition over the phone nor are we able to give sound medical advice over the phone. For these safety reasons, if you call for medical advice we will ask you to come to the ED for further evaluation. 3. If you have any questions regarding these discharge instructions please call the ED at [phone]. SAFETY INFORMATION: In the interest of safety, wellness, and injury prevention; we encourage you to wear your sealbelt, if you smoke; quite smoking, and we encourage family to use a protective helmet for bicycling and other sporting events that present an increased risk for head injury. IF YOUR SYMPTOMS WORSEN OR NEW SYMPTOMS DEVELOP, OR YOU HAVE CONCERNS ABOUT YOUR CONDITION; OR IF YOUR CONDITION WORSENS WHILE YOU ARE WAITING FOR YOUR FOLLOW UP APPOINTMENT; EITHER CONTACT YOUR PRIMARY CARE DOCTOR, THE PHYSICIAN WHOSE NAME AND NUMBER YOU WERE GIVEN, OR RETURN TO THE ED IMMEDIATELY. SHERRIE PALUMBO APRN Jun 23, 2021 18:26 SIDDHARTH SRIVASTAVA MD Jun 23, 2021 22:39
--- NOTE | 2021-06-23 18:35 | EKG ---
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
[2021-06-23 18:49] LABS: BASO % 1 % (0-3); EOS # 0.1 x10^3/uL (0.0-0.7); EOS % 2 % (0-3); HEMATOCRIT 40.9 % (36.0-47.0); HEMOGLOBIN 13.3 g/dL (12.0-15.5); LYMPH # 2.5 x10^3/uL (1.0-4.8); LYMPH % 40 % (24-48); MEAN CORPUSCULAR HEMOGLOBIN 31 pg (25-35); MEAN CORPUSCULAR HGB CONC 33 g/dL (31-37); MEAN CORPUSCULAR VOLUME 96 fL (79-100); MONO # 0.4 x10^3/uL (0.0-1.1); MONO % 7 % (0-9); NEUT # 3.2 x10^3uL (1.8-7.7); NEUT % 51 % (31-73); PLATELET COUNT 252 x10^3/uL (140-400); RED BLOOD COUNT 4.26 x10^6/uL (3.50-5.40); WHITE BLOOD COUNT 6.2 x10^3/uL (4.0-11.0)
[2021-06-23 19:00] LABS: CALCIUM 8.7 mg/dL (8.5-10.1); CREATININE 0.6 mg/dL (0.6-1.0); POTASSIUM 4.2 mmol/L (3.5-5.1)
[2021-06-23 19:06] LABS: ALBUMIN 3.3 g/dL (3.4-5.0); ALBUMIN/GLOBULIN RATIO 1.1 (1.0-1.7); MAGNESIUM 2.2 mg/dL (1.8-2.4); TOTAL BILIRUBIN 0.3 mg/dL (0.2-1.0); TOTAL PROTEIN 6.2 g/dL (6.4-8.2)
--- NOTE | 2021-06-23 19:18 | RAD ---
Study: XR CHEST 1V Indication: Chest pain. Comparison: 02/08/2021 Findings: The cardiomediastinal silhouette and char are within normal limits. No localized airspace opacity, pl eural effusion or pneumothorax. Calcific atherosclerosis at the aortic arch. Unchanged focus of sclerosis projecting beneath the righ t coracoid process. Impression: No acute radiographic abnormality of the chest. Electronically signed by: CHACHO HENRIQUEZ MD (06/23/2021 7:16 PM) [facility]
[2021-06-23] MEDS ORDERED: LIDO:MAALOX 1:1 20 ML SINGLE DOSE. PO ONE (19:30)
[2021-06-23 19:40] VITALS: BP 124/68
[2021-06-23] MEDS ORDERED: HYDROcodone/APAP 5/325MG 1 TAB TABLET PO ONE (19:45)
== END 2021-06-23 19:54 | disposition home or self-care (01) ==
LOC: ER 16:55
DX: K21.9 Gastro-esophageal reflux disease without esophagitis (principal); R51.9 Headache, unspecified; F41.9 Anxiety disorder, unspecified; J45.909 Unspecified asthma, uncomplicated; Z87.891 Personal history of nicotine dependence; Z98.84 Bariatric surgery status; Z88.0 Allergy status to penicillin; Z88.5 Allergy status to narcotic agent; Z88.1 Allergy status to other antibiotic agents; Z88.8 Allergy status to other drugs, medicaments and biological substances
CPT/HCPCS: 36415; 71045; 80053; 83735; 84484; 85025; 93005; 96374; 96375; 99285; J1200; J1885; J2405